=== PATIENT | female | born 1975 | race African-American/Black ===

== ENCOUNTER 2018-08-25 08:43 | Day surgery (SDC) | payer OTHER ==
[~2018-08-25 08:43] MED LIST: BACITRACIN 50000 UNIT VIAL ONE; CEFAZOLIN SODIUM 1 GM/VIAL ONE; FENTANYL CITR 100 MCG/2 ML ONE; GENTAMICIN SULF 80 MG/2ML INJ ONE; LIDOCAINE 2% MPF 5 ML VIAL ONE; MIDAZOLAM HCL 2 MG/2 ML INJ ONE; Mastisol Adhesive Liq ONE; NS 0.9% VIAL 20 ML ONE; ONDANSETRON HCL 40 MG/20 ML VIAL ONE; PROPOFOL 200 MG/20 ML VIAL IV ONE; ROCURONIUM 50 MG/5 ML VIAL IV ONE; Ringers Lactate 1,000 ML IV ONE
[2018-08-25] MEDS ORDERED: SCOPOLAMINE HYDROBROMIDE PATCH TD ONE (08:56)
[2018-08-25] MEDS ORDERED: Ringers Lactate 1,000 ML IV ONE ×2 (08:56→12:52)
[2018-08-25] MEDS ORDERED: CEFAZOLIN 1GM (PREMIX IV) 1 GM/50 ML BAG ONE (08:57)
[2018-08-25 09:03] LABS: Specific Gravity 1.015 (1.005-1.030)
[2018-08-25 09:15] LABS: Absolute Lymphocytes (CBC) 2.1 K/uL (0.7-4.9); Absolute Neutrophil 4.3 K/uL (1.8-8.0); Basophils % 0.8 % (0-1.3); Eosinophils % 0.9 % (0-4.4); Hematocrit 45.6 % (36.0-45.0); MCH 30.4 pg (27.0-35.0); MCV 88.2 fL (80-100); MPV 9.8 fL (7.6-11.3); Monocytes % 12.9 % (3.3-12.3); RBC Red Blood Cell Count 5.16 M/uL (3.86-4.86)
[2018-08-25] MEDS ORDERED: EPHEDRINE SULF 50 MG/10 ML SYR ONE (10:42)
[2018-08-25] MEDS ORDERED: FENTANYL CITR 100 MCG/2 ML ONE (12:40)
[2018-08-25] MEDS ORDERED: KETOROLAC 30 MG/ML INJ ONE (13:57)
[2018-08-25] MEDS: HYDROMORPHONE HCL 1 MG/ML INJ ONE ×7 (14:24→14:53)
[2018-08-25] MEDS ORDERED: HYDROCODONE/APAP 7.5/325 MG TAB ONE (16:35)
--- NOTE | 2018-08-26 01:50 | OP ---
Surgeon: Juanjose Russell MD Cartographic Engineer: Hemant. Preoperative Diagnosis: Breast descent. Postoperative Diagnosis: Breast descent. Procedure Performed: Breast lift. Anesthesia: General. Procedure In Detail: After satisfactory induction of general anesthesia, chest was prepped with Dura Prep. Dry sterile drapes were applied in the usual manner. A 45 template was used to outline the ri ght and left areolae. Then, a skin incision was made around the areola, and transverse and curviline ar inferior incisions were made. The intervening skin was de-epithelialized by EpiCut or dermabrader . Then, the transverse incision was made . Flap was thinned to 1.2 cm cephalad . Flap elevation continued towards the sternum, clavicle, and anterior axillary line. an d then the inferior incision was made after the wound was irrigated with antibiotic solution and then the de-epithelialized tissue was formed into a cone using 2-0 PDS sutures. The straps were elevated from base of the cone on the right breast at the 12 o'clock, 1:30 and 3 o'clock positions. Mirror i mage was done on the left side. The straps were woven in and out of the pectoralis major muscle, romie k to the muscle and back to the base of the cone, again tied to themselves with 2-0 PDS. This was do ne for 12 o'clock and 1:30 straps. The 3 o'clock strap was sewn over sternum at 3 o'clock position w ith 2-0 Ethibond. Mirror image was done on the left side. The wound was carefully stapled shut. Th e patient was sat up. Comparisons were made. Excess skin was marked out. The dog ear was resected laterally and then 10 GARRY was brought out to the axilla and sewn in place with 2-0 silk. The wound wa s closed with 3-0 Vicryl subcu with 3-0 PDS running subcuticular tied in the vertical meridian of the breast. Patient was sat up. Site for new nipple-areolar complex was marked out. A 45 mm template was used to outline the side. Tissue was cored out and then nipple delivered, sewn with interrupted 4-0 PDS followed by 4-0 PDS running subcuticular. Dressings consisted of tincture of benzoin, Steri- Strips, 5 x 5's, fluffs, and Feliciano wrap. The patient tolerated the procedure well and returned to [place] very. NETTIE Voice ID: [id number] Report ID: [id number]
== END 2018-08-25 17:00 | disposition home or self-care (01) ==
LOC: OR 08:43
PROVIDERS: ATTEND Specialist
PROC: 0H0V0ZZ Alteration of Bilateral Breast, Open Approach (ICD-10-PCS; principal; 2018-08-25 09:00)
DX: N64.81 Ptosis of breast (principal)
CPT/HCPCS: 36415; 81025; 85025; 88305; J0690; J1170; J1580; J2250; J2405; J2704; J3010